=== PATIENT | male | born 1970 | race African-American/Black ===

== ENCOUNTER 2019-12-31 16:52 | Emergency (ER) | payer BC ==
[~2019-12-31] VITALS: Ht 182.9 cm; Wt 89.4 kg
[2019-12-31 16:58] VITALS: BP_SYST 151
[2019-12-31 17:19] VITALS: BP_SYST 151
== END 2019-12-31 17:19 | disposition home or self-care (01) ==
LOC: SED 16:52
DX: L73.8 Other specified follicular disorders (principal); I10 Essential (primary) hypertension; Z88.8 Allergy status to other drugs, medicaments and biological substances
CPT/HCPCS: 99283

== ENCOUNTER 2020-01-03 16:34 | Emergency (ER) | payer BC ==
[~2020-01-03] VITALS: Ht 182.9 cm; Wt 90.7 kg
[2020-01-03 17:25] VITALS: BP_SYST 140
--- NOTE | 2020-01-03 17:35 | NUR ---
Patient to ER bed 2 to gown for evaluation. Side rails up.
--- NOTE | 2020-01-03 17:40 | NUR ---
Patient arrived via POV, AAOx4, and ambulatory with steady gait. Patient was seen in our ED within 2 days, for abscess on face for the past 3 day with pain. Patient states nothing is making it better, or worse. Patient was started on Keflex, and does not feel like he is getting better. Patient states no fever, chills, nausea, vomiting present. Will continue to follow up and monitor.
--- NOTE | 2020-01-03 17:42 | NUR ---
ER at bedside examining patient.
[2020-01-03] MEDS ORDERED: cefTRIAXone 1 GM IVPB PREMIX 50 ML IV ONE (17:45)
[2020-01-03] MEDS ORDERED: KETOROLAC TROMETHAMINE 30 MG VIAL IVP ONE (17:45)
[2020-01-03] MEDS ORDERED: NACL 0.9% 1,000 ML IV ONE (17:45)
[2020-01-03 18:16] LABS: BASOPHILS % (AUTO) 0.5 % (0.0-2.0); EOSINOPHILS # (AUTO) 0.1 K/uL (0.0-0.4); MEAN CORPUSCULAR HGB CONC 33 % (32-36); WHITE BLOOD COUNT (AUTO) 8.6 K/uL (4.8-10.8)
[2020-01-03 18:21] LABS: HEMOGLOBIN 15.3 g/dL (14.0-18.0); LYMPHOCYTES # (AUTO) 1.7 K/uL (1.0-5.5); LYMPHOCYTES % (AUTO) 19.3 % (20.5-51.5); MEAN CORPUSCULAR HEMOGLOBIN 30 pg (27-31); MEAN CORPUSCULAR VOLUME 91 fL (79.0-98.0); MONOCYTES # (AUTO) 1.3 K/uL (0.0-1.0); NEUTROPHILS # (AUTO) 5.5 K/uL (1.8-7.7); NEUTROPHILS % (AUTO) 64.2 % (40.0-70.0); PLATELET COUNT (AUTO) 347 K/uL (130-430); RED BLOOD CELL COUNT(AUTO) 5.05 MIL/uL (4.2-6.2)
[2020-01-03 18:24] LABS: CALCIUM 9.2 mg/dL (8.4-11.0); CREATININE 1.26 mg/dL (0.55-1.30); POTASSIUM 4.1 mmol/L (3.5-5.1)
[2020-01-03 18:29] LABS: ALBUMIN 4.1 g/dL (3.4-4.8); TOTAL BILIRUBIN 0.9 mg/dL (0.0-1.0)
--- NOTE | 2020-01-03 19:14 | NUR ---
Report received from [facility] for continuation of care.
--- NOTE | 2020-01-03 19:25 | NUR ---
Waiting on fluids to finish prior to discharge. Vital signs stable.
[2020-01-03 20:42] VITALS: BP_SYST 139
--- NOTE | 2020-01-03 20:42 | NUR ---
Patient given written and verbal discharge instructions and verbalizes understanding. ER MD discussed with patient the results and treatment provided. Patient in stable condition. ID arm band removed. IV catheter removed intact and dressing applied, no active bleeding. Rx of Tylenol and Cleocin given. Patient educated on pain management and to follow up with PMD. Pain Scale 0/10. Opportunity for questions provided and answered. Medication side effect fact sheet provided.
== END 2020-01-03 20:42 | disposition home or self-care (01) ==
LOC: SED 16:34
DX: L03.211 Cellulitis of face (principal); E86.0 Dehydration
CPT/HCPCS: 36415; 80053; 85025; 85651; 87040; 96365; 99284; J0696; J1885; J7030